=== PATIENT | male | born 2000 | race Caucasian/White ===

== ENCOUNTER 2018-10-12 16:17 | Emergency (ER) | payer MEDICAID, SELFPAY ==
[2018-10-12 16:20] VITALS: BP 101/71; PULSE 77; RESP 16; TEMP 37.1; O2SAT 98
--- NOTE | 2018-10-12 16:30 | W.ED.GENAD ---
Discharge Plan Disposition Patient Disposition: HOME Condition: Good Discharge Details Chief Complaint: Urinary Clinical Impression: Dysuria Primary Care Provider: Arlet Naranjo ED Provider: Bam Guillermo Home Meds and New Rx's Prescriptions: New doxycycline hyclate 100 mg capsule 100 mg PO BID 10 Days Qty: 20 RF: 0 Discharge Instructions Instructions: Dysuria (ED) Additional Instructions: Take medication as prescribed. Follow-up with regular doctor for recheck in 1-2 weeks time. You are stable for discharge home. Medical Decision Making 18-year-old male presents with mild dysuria and report of his sexual partner with positive chlamydia. He is well-appearing and otherwise his exam is reassuring. We will send chlamydia for urine culture and initiate treatment with doxycycline and patient given 250 mg of Rocephin IM prior to discharge. He is stable for discharge home. HPI General Mode of arrival: ambulatory. Date/Time Provider Initiated Documentation: 10/12/18 16:23. Limitations to Documentation: no limitations. Information obtained by: patient. History of Present Illness 18 year old M presents to the emergency department with the chief complaint of Mild dysuria and positive contact with chlamydia, described as mild and moderate, Quality is described as burning, and is localized to the genitals. Patient reports no radiation. Patient started experiencing this day(s) and it has been intermittent. No relieving factors improve symptom(s), No exacerbating factors reported . Patient notes no other symptoms.. Patient did receive the following treatments prior to arrival, none Related Data Home Medications Medication Instructions Recorded Confirmed doxycycline hyclate 100 mg PO BID 10 Days #20 cap 10/12/18 Previous Rx's Medication Instructions Recorded doxycycline hyclate 100 mg PO BID 10 Days #20 cap 10/12/18 Allergies Allergy/AdvReac Type Severity Reaction Status Date / Time bee venom protein (honey bee) Allergy Hives Unverified 10/12/18 16:26 General Stated Complaint: Urinary ALONSO: 4 Review of Systems Review of Systems No sores or lesions of penis, no discharge. No fever. Positive chlamydia contact with girlfriend who was diagnosed with same. 6 systems reviewed and otherwise negative [facility] Medical History Depression Wears glasses Family History Mother Fibromyalgia MS (multiple sclerosis) Thyroid disease Father No problems noted. Grandmother Mental disorder Thyroid disease Grandfather Rheumatoid arthritis Diabetes Social History Smoking/Tobacco Use Status: Current every day Tobacco Type: e-cigarettes Alcohol Intake: never Drug use: Daily Substance use type: marijuana Do you feel safe at home: Yes Do you feel safe in your relationship?: Yes Exam Narrative Exam Narrative: GEN: awake, alert, oriented 3. Pleasant, well groomed, interactive. HEAD: Normocephalic, atraumatic ENT: Mucous membranes moist, oropharynx unremarkable, External ear exam unremarkable EYES: PERRL, EOMI NECK: Full ROM, no GLORIA, no menigismus CHEST/RESP: Nontender, clear to auscultation bilateral, no wheeze/rhonchi/rales CARDIOVASCULAR: RRR, no murmur, rub kirsten. 2+ Rad pulse bilateral ABDOMEN: Soft, nontender, no mass. +Bowel sounds. : Testes descended bilaterally. Unremarkable appearance to the penile meatus and shaft. No sores or lesions EXT: Full ROM, no edema, no rash Neuro: Grossly normal neurologic exam, conversant, interactive. Psych: Speech fluent, thoughts congruent, affect normal Course Vital Signs Temperature 37.1 C 10/12/18 16:20 Pulse 77 10/12/18 16:20 Respiratory Rate 16 10/12/18 16:20 Blood Pressure 101/71 10/12/18 16:20 Pulse Oximetry 98 10/12/18 16:20 Temperature 37.1 C 10/12/18 16:20 Temperature Source Temporal Artery Scan 10/12/18 16:20 Pulse 77 10/12/18 16:20 Respiratory Rate 16 10/12/18 16:20 Respiratory Effort Non-Labored 10/12/18 16:24 Blood Pressure 101/71 10/12/18 16:20 Blood Pressure Position Sitting 10/12/18 16:20 Pulse Oximetry 98 10/12/18 16:20 Oxygen Delivery Method Room Air 10/12/18 16:20 Oxygen Flow Rate 0 10/12/18 16:20 Pain Level 0 10/12/18 16:20
--- NOTE | 2018-10-12 16:34 | ED.GENADUL_ITS ---
Discharge Plan Disposition Patient Disposition: HOME Condition: Good Discharge Details Chief Complaint: Urinary Clinical Impression: Dysuria Primary Care Provider: Arlet Naranjo ED Provider: Bam Guillermo Home Meds and New Rx's Prescriptions: New doxycycline hyclate 100 mg capsule 100 mg PO BID 10 Days Qty: 20 RF: 0 Discharge Instructions Instructions: Dysuria (ED) Additional Instructions: Take medication as prescribed. Follow-up with regular doctor for recheck in 1-2 weeks time. You are stable for discharge home. Medical Decision Making 18-year-old male presents with mild dysuria and report of his sexual partner with positive chlamydia. He is well-appearing and otherwise his exam is reassuring. We will send chlamydia for urine culture and initiate treatment with doxycycline and patient given 250 mg of Rocephin IM prior to discharge. He is stable for discharge home. HPI General Mode of arrival: ambulatory . Date/Time Provider Initiated Documentation: 10/12/18 16:23 . Limitations to Documentation: no limitations . Information obtained by: patient . History of Present Illness 18 year old M presents to the emergency department with the chief complaint of Mild dysuria and positive contact with chlamydia, described as mild and moderate, Quality is described as burning, and is localized to the genitals. Patient reports no radiation. Patient started experiencing this day(s) and it has been intermittent. No relieving factors improve symptom(s), No exacerbating factors reported . Patient notes no other symptoms.. Patient did receive the following treatments prior to arrival, none Related Data Home Medications Medication Instructions Recorded Confirmed doxycycline hyclate 100 mg PO BID 10 Days #20 cap 10/12/18 Previous Rx's Medication Instructions Recorded doxycycline hyclate 100 mg PO BID 10 Days #20 cap 10/12/18 Allergies Allergy/AdvReac Type Severity Reaction Status Date / Time bee venom protein (honey bee) Allergy Hives Unverified 10/12/18 16:26 General Stated Complaint: Urinary ALONSO: 4 Review of Systems Review of Systems No sores or lesions of penis, no discharge. No fever. Positive chlamydia contact with girlfriend who was diagnosed with same. 6 systems reviewed and otherwise negative [facility] Medical History Depression Wears glasses Family History Mother Fibromyalgia MS (multiple sclerosis) Thyroid disease Father No problems noted. Grandmother Mental disorder Thyroid disease Grandfather Rheumatoid arthritis Diabetes Social History Smoking/Tobacco Use Status: Current every day Tobacco Type: e-cigarettes Alcohol Intake: never Drug use: Daily Substance use type: marijuana Do you feel safe at home: Yes Do you feel safe in your relationship?: Yes Exam Narrative Exam Narrative: GEN: awake, alert, oriented 3. Pleasant, well groomed, interactive. HEAD: Normocephalic, atraumatic ENT: Mucous membranes moist, oropharynx unremarkable, External ear exam unremarkable EYES: PERRL, EOMI NECK: Full ROM, no GLORIA, no menigismus CHEST/RESP: Nontender, clear to auscultation bilateral, no wheeze/rhonchi/rales CARDIOVASCULAR: RRR, no murmur, rub kirsten. 2+ Rad pulse bilateral ABDOMEN: Soft, nontender, no mass. +Bowel sounds. : Testes descended bilaterally. Unremarkable appearance to the penile meatus and shaft. No sores or lesions EXT: Full ROM, no edema, no rash Neuro: Grossly normal neurologic exam, conversant, interactive. Psych: Speech fluent, thoughts congruent, affect normal Course Vital Signs Temperature 37.1 C 10/12/18 16:20 Pulse 77 10/12/18 16:20 Respiratory Rate 16 10/12/18 16:20 Blood Pressure 101/71 10/12/18 16:20 Pulse Oximetry 98 10/12/18 16:20 Temperature 37.1 C 10/12/18 16:20 Temperature Source Temporal Artery Scan 10/12/18 16:20 Pulse 77 10/12/18 16:20 Respiratory Rate 16 10/12/18 16:20 Respiratory Effort Non-Labored 10/12/18 16:24 Blood Pressure 101/71 10/12/18 16:20 Blood Pressure Position Sitting 10/12/18 16:20 Pulse Oximetry 98 10/12/18 16:20 Oxygen Delivery Method Room Air 10/12/18 16:20 Oxygen Flow Rate 0 10/12/18 16:20 Pain Level 0 10/12/18 16:20
[2018-10-12] MEDS: cefTRIAXone 250 MG VIAL IM (16:44)
[2018-10-15 14:26] LABS: Chlamydia Result Negative; Specimen Description URINE
--- NOTE | 2018-10-16 10:30 | W.ED.FU ---
Patient called to the ER today requesting results of his urine chlamydia test and whether he can stop his antibiotics. Urine chlamydia negative. Patient states he is having some abdominal cramping which he attributes to the doxycycline. He denies any fever, dysuria or penile discharge. Patient was given ceftriaxone and a prescription for doxycycline after an exposure to a girlfriend with positive chlamydia. Patient was instructed that he can stop his antibiotics as he no longer has any urinary symptoms and his urine chlamydia was negative and he admits to some discomfort being on the antibiotics. He is instructed to follow-up with primary care doctor and return to the ER if he has any worsening or new concerning symptoms.
== END 2018-10-12 16:53 | disposition home or self-care (01) ==
LOC: ER 16:53
PROVIDERS: Emergency Provider Emergency Medicine; PCP Nurse Practitioner Pediatrics
DX: R30.0 Dysuria (principal); Z20.2 Contact with and (suspected) exposure to infections with a predominantly sexual mode of transmission
CPT/HCPCS: 87491; 96372; 99284; J0696